=== PATIENT | male | born 1985 | race Hispanic/Latino ===

== ENCOUNTER 2017-11-09 18:07 | Emergency (ER) | payer BC ==
[2017-11-09] MEDS ORDERED: ASPIRIN 325 MG TAB ONE (19:04)
[2017-11-09] MEDS ORDERED: NA CHLORIDE 0.9% 1,000 ML ONE (19:04)
[2017-11-09 19:25] LABS: Absolute Monocytes 0.8 K/uL (0.1-1.3); Absolute Neutrophil 4.2 K/uL (1.8-8.0); Basophils % 0.7 % (0-1.3); Lymphocytes % 36.6 % (15.3-44.8); MCH 29.2 pg (27.0-35.0); MCV 85.3 fL (80-100); MPV 9.1 fL (7.6-11.3); Monocytes % 9.4 % (3.3-12.3); RBC Red Blood Cell Count 5.39 M/uL (4.33-5.43)
[2017-11-09 19:27] LABS: Protime INR 1.13
[2017-11-09 20:02] LABS: ALT/SGPT 39 U/L (12-78); AST/SGOT 22 U/L (15-37); Albumin 4.1 g/dL (3.4-5.0); Alkaline Phosphatase 58 U/L (45-117); BUN Blood Urea Nitrogen 20 mg/dL (7-18); Bicarbonate 27 mmol/L (21-32); Bilirubin Direct < 0.1 mg/dL (0-0.2); Bilirubin Total 0.4 mg/dL (0.2-1.0); CKMB Creatine Kinase MB < 1.0 ng/mL (0.3-3.6); Creatine Phosphokinase 115 U/L (39-308); Glucose Level 101 mg/dL (74-106); Magnesium 2.1 mg/dL (1.8-2.4); NT PRO-BNP 23 pg/mL (<125); Potassium 4.3 mmol/L (3.5-5.1); Protein, Total 7.8 g/dL (6.4-8.2); Sodium Level 140 mmol/L (136-145)
[2017-11-09 20:04] LABS: Urine Blood NEGATIVE (NEG); Urine Glucose NEGATIVE (NEG); Urine Protein NEGATIVE (NEG); Urine Specific Gravity 1.025 (1.005-1.030); Urine pH 6.5 (5.0-7.0)
--- NOTE | 2017-11-09 20:46 | RAD REPORT ---
EXAM DESCRIPTION: RAD - Chest Single View - 11/09/2017 8:11 pm CLINICAL HISTORY: CHEST PAIN Chest pain. COMPARISON: <Comparisons> FINDINGS: Portable technique limits examination quality. The lungs are grossly clear. The heart is normal in size. No displaced fractures. IMPRESSION: No acute intrathoracic process suspected.
--- NOTE | 2017-11-09 21:04 | EDPHYS ---
Physician Documentation [facility] Name: Ezra Cartwright Age: 32 yrs Sex: Male : 1985 Arrival Date: 11/09/2017 Time: 18:09 Bed 14 Private MD: ED Physician Imtiaz Harp HPI: 11/09 18:55 This 32 yrs old Male presents to ER via Ambulatory with complaints of Chest [facility] Pain, Shortness Of Breath. 18:55 The patient or guardian reports chest pain that is located primarily in the substernal [facility] area. The pain does not radiate. Associated signs and symptoms: Pertinent positives: nausea, shortness of breath. The chest pain is described as sharp. Duration: The patient or guardian reports multiple episodes. Modifying factors: The symptoms are alleviated by nothing. the symptoms are aggravated by nothing. This is a 32 year old male with no chronic medical conditions that presents to the ED with left sided chest pain beginning yesterday. Patient states symptoms fluctuate in intensity. Denies radiation of pain. Patient states he will occasionally have episodes of shortness of breath which are non exertional. Patient denies fever. Patient denies tobacco use, denies recreational drug use. . Historical: - Allergies: 18:18 No Known Allergies; aj1 - Home Meds: 18:18 None [Active]; aj1 - PMHx: 18:18 None; aj1 - PSHx: 18:18 None; aj1 - Immunization history:: Flu vaccine is not up to date. - Social history:: Smoking status: Patient/guardian denies using tobacco. - Ebola Screening: : Patient denies travel to an Ebola-affected area in the 21 days before illness onset. ROS: 18:55 Constitutional: Negative for fever, chills, and weight loss. jmm 18:55 Abdomen/GI: Negative for abdominal pain, nausea, vomiting, diarrhea, and constipation, Back: Negative for injury and pain, MS/Extremity: Negative for injury and deformity, Skin: Negative for injury, rash, and discoloration, Neuro: Negative for headache, weakness, numbness, tingling, and seizure. 18:55 Cardiovascular: Positive for chest pain. 18:55 Respiratory: Positive for shortness of breath. 18:55 All other systems are negative. Exam: 18:55 Constitutional: This is a well developed, well nourished patient who is awake, alert, jmm and in no acute distress. Head/Face: atraumatic. 18:55 Cardiovascular: Rate: normal, Rhythm: regular, Pulses: no pulse deficits are appreciated. 18:55 Respiratory: the patient does not display signs of respiratory distress, Respirations: normal, Breath sounds: are clear throughout. 18:55 Abdomen/GI: Inspection: abdomen appears normal, Bowel sounds: normal, Palpation: abdomen is soft and non-tender, in all quadrants. 18:55 Back: ROM is normal. 18:55 Musculoskeletal/extremity: ROM: intact in all extremities. 18:55 Skin: Appearance: Color: normal in color. 18:55 Neuro: Orientation: is normal, Mentation: is normal, Memory: is normal. 18:55 Psych: Behavior/mood is pleasant, cooperative. Vital Signs: 18:18 BP 162 / 92; Pulse 84; Resp 18; Temp 98.6(TE); Pulse Ox 100% on R/A; Weight 78.02 kg aj1 (R); Height 5 ft. 5 in. (165.10 cm); Pain 6/10; 20:33 BP 151 / 73; Pulse 75; Resp 18; Pulse Ox 100% on R/A; Pain 0/10; mg2 21:42 BP 137 / 75; Pulse 59; Resp 18; Pulse Ox 100% on R/A; Pain 0/10; mg2 18:18 Body Mass Index 28.62 (78.02 kg, 165.10 cm) aj1 MDM: 18:34 Patient medically screened. [facility] 21:02 Data reviewed: vital signs, nurses notes, lab test result(s), EKG, radiologic studies, [facility] plain films. Counseling: I had a detailed discussion with the patient and/or guardian regarding: the historical points, exam findings, and any diagnostic results supporting the discharge/admit diagnosis, the presence of at least one elevated blood pressure reading (>120/80) during this emergency department visit, lab results, radiology results, the need for outpatient follow up, to return to the emergency department if symptoms worsen or persist or if there are any questions or concerns that arise at home. 21:33 LIZBET Risk Score: TOTAL SCORE = 0. ED course: heart score = 1. ED course: Patient is [facility] alert and non toxic in appearance in the ED. Patient is low risk for ACS, d-dimer is negative. chest xray is not concerning for pneumothorax. Patient's symptoms have improved. I encouraged patient to establish himself with PCP for further evaluation and otherwise gave him strict return precautions. the patient understood and agrees with the plan of care. . 11/09 18:46 Order name: Urine Dipstick--Ancillary (enter results); Complete Time: 20:27 mb 11/09 18:55 Order name: Basic Metabolic Panel; Complete Time: 20:27 [facility] 11/09 18:55 Order name: CBC with Diff; Complete Time: 19:46 [facility] 11/09 18:55 Order name: Ckmb; Complete Time: 20:27 [facility] 11/09 18:55 Order name: CPK; Complete Time: 20:27 [facility] 11/09 18:55 Order name: LFT's; Complete Time: 20:27 [facility] 11/09 18:55 Order name: Magnesium; Complete Time: 20:27 [facility] 11/09 18:55 Order name: NT PRO-BNP; Complete Time: 20:27 [facility] 11/09 18:55 Order name: PT-INR; Complete Time: 19:46 [facility] 11/09 18:55 Order name: Ptt, Activated; Complete Time: 19:46 [facility] 11/09 18:55 Order name: Troponin (emerg Dept Use Only); Complete Time: 19:46 [facility] 11/09 18:55 Order name: XRAY Chest (1 view); Complete Time: 20:58 [facility] 11/09 21:06 Order name: D-Dimer; Complete Time: 21:33 [facility] 11/09 18:55 Order name: EKG; Complete Time: 18:55 [facility] 11/09 18:55 Order name: Cardiac monitoring; Complete Time: 18:58 [facility] 11/09 18:55 Order name: EKG - Nurse/Tech; Complete Time: 18:58 [facility] 11/09 18:55 Order name: IV Saline Lock; Complete Time: 18:58 [facility] 11/09 18:55 Order name: Labs collected and sent; Complete Time: 18:58 [facility] 11/09 18:55 Order name: O2 Per Protocol; Complete Time: 18:58 [facility] 11/09 18:55 Order name: O2 Sat Monitoring; Complete Time: 18:58 [facility] 08/04 18:55 Order name: Urine Dipstick-Ancillary (obtain specimen); Complete Time: 18:58 [facility] Administered Medications: 19:03 Drug: NS 0.9% 1000 ml Route: IV; Rate: 1 bolus; Site: right antecubital; mg2 20:00 Follow up: Response: No adverse reaction; IV Status: Completed infusion mg2 19:03 Drug: Aspirin 325 mg Route: PO; mg2 21:28 Follow up: Response: No adverse reaction mg2 Disposition: 11/09/17 21:36 Discharged to Home. Impression: Chest pain, unspecified. - Condition is Stable. - Discharge Instructions: Nonspecific Chest Pain. - Prescriptions for Ibuprofen 800 mg Oral Tablet - take 1 tablet by ORAL route every 8 hours As needed take with food; 30 tablet. - Work release form, Medication Reconciliation Form, Thank You Letter, Antibiotic Education, Prescription Opioid Use form. - Follow up: Private Physician; When: 2 - 3 days; Reason: Recheck today's complaints, Continuance of care, Re-evaluation by your physician. Addendum: 11/11/2017 14:02 Co-signature as Attending Physician, Imtiaz Harp MD I agree with the assessment and c avelar plan of care. Signatures: Dispatcher [employer] EDRachell Burns RN RN aj1 Imtiaz Harp MD MD cha Mickail, Joel, PA PA [facility] Mariusz Rebolledo RN RN mg2 Corrections: (The following items were deleted from the chart) 11/09 21:05 21:04 11/09/2017 21:04 Discharged to Home. Impression: Other chest pain. Condition is [facility] Stable. Forms are Medication Reconciliation Form, Thank You Letter, Antibiotic Education, Prescription Opioid Use. Follow up: Private Physician; When: 1 - 2 days; Reason: Continuance of care. [facility] 21:52 21:36 11/09/2017 21:36 Discharged to Home. Impression: Chest pain, unspecified. mg2 Condition is Stable. Forms are Medication Reconciliation Form, Thank You Letter, Antibiotic Education, Prescription Opioid Use. Follow up: Private Physician; When: 2 - 3 days; Reason: Recheck today's complaints, Continuance of care, Re-evaluation by your physician. [facility]
--- NOTE | 2017-11-09 21:04 | ER ---
Nurse's Notes [facility] Emergency Department Name: Ezra Cartwright Age: 32 yrs Sex: Male : 1985 Arrival Date: 11/09/2017 Time: 18:09 Bed 14 Private MD: Diagnosis: Chest pain, unspecified Presentation: 11/09 18:14 Presenting complaint: Patient states: Chest pain since yesterday. Reports left sided aj1 chest pain that does not radiate and is described as throbbing. Patient also reports SOB, palpitations, nausea. States he has been checking his blood pressure for a month and its been high lately. [facility] Transition of care: patient was not received from another setting of care. Onset of symptoms was November 08, 2017. Risk Assessment: Do you want to hurt yourself or someone else? Patient reports no desire to harm self or others. Initial Sepsis Screen: Does the patient meet any 2 criteria? No. Patient's initial sepsis screen is negative. Does the patient have a suspected source of infection? No. Patient's initial sepsis screen is negative. Care prior to arrival: None. 18:14 Method Of Arrival: Ambulatory aj1 18:14 Acuity: MONIK 3 aj1 Triage Assessment: 18:18 General: Appears in no apparent distress. comfortable, Behavior is calm, cooperative, aj1 appropriate for age. Pain: Complains of pain in anterior aspect of left upper chest Pain does not radiate. Pain currently is 6 out of 10 on a pain scale. Quality of pain is described as throbbing, Pain began 1 day ago. Is continuous, Alleviated by nothing. Aggravated by nothing. Neuro: Level of Consciousness is awake, alert, obeys commands. Cardiovascular: Reports chest pain, nausea, palpitations, shortness of breath, Patient's skin is warm and dry. Respiratory: Airway is patent Respiratory effort is even, unlabored, Respiratory pattern is regular, symmetrical. Historical: - Allergies: 18:18 No Known Allergies; aj1 - Home Meds: 18:18 None [Active]; aj1 - PMHx: 18:18 None; aj1 - PSHx: 18:18 None; aj1 - Immunization history:: Flu vaccine is not up to date. - Social history:: Smoking status: Patient/guardian denies using tobacco. - Ebola Screening: : Patient denies travel to an Ebola-affected area in the 21 days before illness onset. Screenin:36 Abuse screen: Denies threats or abuse. Denies injuries from another. Nutritional mg2 screening: No deficits noted. Tuberculosis screening: No symptoms or risk factors identified. Fall Risk IV access (20 points). Assessment: 18:34 General: Appears in no apparent distress. comfortable, Behavior is calm, cooperative. mg2 Pain: Complains of pain in chest and anterior aspect of left upper chest Pain radiates to left arm Pain currently is 5 out of 10 on a pain scale. Quality of pain is described as aching, Pain began gradually, 1 day ago. Is intermittent, Alleviated by rest, Also complains of shortness of breath. Neuro: Level of Consciousness is awake, alert, obeys commands, Oriented to person, place, time, situation. Cardiovascular: Capillary refill < 3 seconds Patient's skin is warm and dry. Respiratory: Airway is patent Respiratory effort is even, unlabored, Respiratory pattern is regular, symmetrical. GI: No signs and/or symptoms were reported involving the gastrointestinal system. GI: No signs and/or symptoms were reported involving the gastrointestinal system. Reports nausea. : No signs and/or symptoms were reported regarding the genitourinary system. EENT: No signs and/or symptoms were reported regarding the EENT system. Derm: Skin is intact, Skin is pink, warm \T\ dry. normal. Musculoskeletal: Circulation, motion, and sensation intact. Vital Signs: 18:18 BP 162 / 92; Pulse 84; Resp 18; Temp 98.6(TE); Pulse Ox 100% on R/A; Weight 78.02 kg aj1 (R); Height 5 ft. 5 in. (165.10 cm); Pain 6/10; 20:33 BP 151 / 73; Pulse 75; Resp 18; Pulse Ox 100% on R/A; Pain 0/10; mg2 21:42 BP 137 / 75; Pulse 59; Resp 18; Pulse Ox 100% on R/A; Pain 0/10; mg2 18:18 Body Mass Index 28.62 (78.02 kg, 165.10 cm) aj1 ED Course: 18:09 Patient arrived in ED. rg4 18:18 Triage completed. aj1 18:18 Arm band placed on Patient placed in an exam room. aj1 18:27 Gardose, Mariusz, RN is Primary Nurse. mg2 18:33 Bebeto Barriga PA is PHCP. [facility] 18:33 Imtiaz Harp MD is Attending Physician. m 18:34 Inserted saline lock: 20 gauge in right antecubital area, using aseptic technique. dh3 Blood collected. 18:36 Patient has correct armband on for positive identification. Placed in gown. Bed in low mg2 position. Call light in reach. Side rails up X2. night monitor on. Pulse ox on. NIBP on. 18:36 Patient maintains SpO2 saturation greater than 95% on room air. mg2 18:42 EKG done, by ED staff, reviewed by Bebeto RAE. dh3 20:07 X-ray completed. Portable x-ray completed in exam room. Patient tolerated procedure jb2 well. 20:12 XRAY Chest (1 view) In Process Unspecified. EDMS 21:51 No provider procedures requiring assistance completed. IV discontinued, intact, mg2 bleeding controlled, No redness/swelling at site. Pressure dressing applied. Administered Medications: 19:03 Drug: NS 0.9% 1000 ml Route: IV; Rate: 1 bolus; Site: right antecubital; mg2 20:00 Follow up: Response: No adverse reaction; IV Status: Completed infusion mg2 19:03 Drug: Aspirin 325 mg Route: PO; mg2 21:28 Follow up: Response: No adverse reaction mg2 Outcome: 21:04 Discharge ordered by MD. [facility] 21:36 Discharge ordered by MD. [facility] 21:52 Discharged to home ambulatory, with family. mg2 21:52 Condition: stable 21:52 Discharge instructions given to patient, family, Instructed on discharge instructions, follow up and referral plans. medication usage, Demonstrated understanding of instructions, follow-up care, medications, Prescriptions given X 1. 21:52 Patient left the ED. mg2 Signatures: Dispatcher [employer] EDMS Rachell Goldman, RN RN aj1 Bebeto Barriga PA PA [facility] Yovani Sy2 Tanja Raines Renetta Hensley 3 Mariusz Rebolledo, HASEEB MEMBRENO mg2
--- NOTE | 2017-11-10 10:37 | EKG ---
Test Date: 2017-11-09 Test Time: 18:39:12 [place] [employer] [employer]: ERIN MEASUREMENT RESULTS: Intervals: Rate: 76 SC: 166 QRSD: 100 QT: 368 QTc: 414 Hawkins: P: 35 SC: 166 QRS: 124 T: 19 INTERPRETIVE STATEMENTS: Normal sinus rhythm Right axis deviation Abnormal ECG No previous ECG available for comparison Electronically Signed On 11-10-17 10:36:39 CDT by Cooper Mejia
== END 2017-11-09 21:52 | disposition home or self-care (01) ==
LOC: ER 18:07
DX: R07.9 Chest pain, unspecified (principal)
CPT/HCPCS: 36415; 71045; 80048; 80076; 81003; 82550; 82553; 83735; 83880; 84484; 85025; 85379; 85610; 85730; 93005; 96360; 99285; J7030